=== PATIENT | male | born 1960 | race Caucasian/White ===

== ENCOUNTER 2021-04-28 09:07 | Emergency (ER) | payer MEDICARE, SELFPAY ==
--- NOTE | ~2021-04-28 | CT_ITS ---
EXAMINATION: CT abdomen pelvis w con EXAM DATE: 04/28/2021 11:48 INDICATION: Right flank pain. TECHNIQUE: Spiral CT of the abdomen and pelvis was performed following intravenous injection of 100 m L Omnipaque 350. Axial, coronal and sagittal images of the abdomen and pelvis were reviewed. The do se-length product (DLP) for this examination was 1369.50 mGy-cm. The exposure was tailored according to patient size (auto mA exposure control), and iterative reconstruction (ASIR) was used as addition al dose reduction technique. There is no prior study for comparison. FINDINGS: Nodular liver contour consistent with cirrhosis. No focal liver lesions. The spleen, adrena l glands and pancreas are unremarkable. The gallbladder is contracted but otherwise unremarkable. P ortal and splenic veins are patent. Kidneys enhance symmetrically. There is no hydronephrosis. Th e prostate is unremarkable. The bladder is unremarkable. Several borderline sized lower retroperito luis alberto, right pelvic lymph nodes which are also hyperdense, consistent with prior granulomatous process . Treated lymphoma would be another consideration if there is such history. The appendix is normal. The stomach and small bowel are unremarkable. There is expected amount of c olonic stool. No free intraperitoneal gas. The heart is normal in size. There are no pericardial or pleural effusions. The lung bases are unremarkable. There are no osteoblastic or osteolytic les ions identified. IMPRESSION: 1. Several borderline enlarged, hyperdense lower retroperitoneal lymph nodes could be prior granulom atous process or treated lymphoma if there is such history. 2. Cirrhosis. Reviewed, dictated and finalized at location A. IMPRESSION: 1. Several borderline enlarged, hyperdense lower retroperitoneal lymph nodes c ould be prior granulomatous process or treated lymphoma if there is such histor y. 2. Cirrhosis.
[2021-04-28 09:21] VITALS: BP 133/62; PULSE 93; RESP 20; TEMP 36.8; O2SAT 90
[2021-04-28 09:35] LABS: Basophils Percent Auto 0.6 % (0.2-1.2); Eosinophils Absolute Auto 0.1 K/mm3 (0-0.3); Hematocrit 55.6 % (42.0-52.0); Hemoglobin 18.3 g/dL (14.0-18.0); Immature Granulocyte Absolute 0.02 K/mm3 (0.00-0.031); Immature Granulocyte Percent A 0.3 % (0-0.5); Lymphocytes Absolute Auto 1.06 K/mm3 (0.9-3.2); Mean Corpuscular HGB Conc 32.9 g/dl (32-36); Mean Corpuscular Volume 100.4 fl (80-100); Mean Platelet Volume 10.1 fl (7.4-10.4); Monocytes Absolute Auto 0.7 K/mm3 (0.1-0.6); Monocytes Percent Auto 9.5 % (2.6-8.5); Neutrophils Absolute Auto 5.1 K/mm3 (1.3-6.7); Neutrophils Percent Auto 72.6 % (45.5-73.1); Platelet Count Result 141 k/mm3 (150-375); Red Blood Count 5.54 M/mm3 (4.6-6.20); Red Cell Distribution Width 13.6 % (11.5-14.5); White Blood Count 7.1 K/mm3 (4.5-10.0)
[2021-04-28 09:48] LABS: Anion Gap 9 mmol/L (8-16); Blood Urea Nitrogen 16 mg/dL (9-20); Calcium 9.2 mg/dL (8.4-10.2); Carbon Dioxide 30 mmol/L (22-30); Chloride 102 mmol/L (98-107); Estimated CRCL calculation 179 ml/min; Estimated Glomerular Filt Rate > 60; Glucose 199 mg/dL (65-110); Potassium 4.1 mmol/L (3.4-5.0); Sodium 141 mmol/L (137-145)
[2021-04-28 10:45] VITALS: O2SAT 97
--- NOTE | 2021-04-28 11:13 | ED.ABDPAIN ---
HPI - Abdominal Pain General Chief Complaint: Abdominal Pain Stated Complaint: flank pain Time Seen by Provider: 04/28/21 11:12 Source: patient Mode of arrival: ambulatory Limitations: no limitations and clinical condition History of Present Illness HPI narrative: Patient 61 years old white male, morbidly obese presents with intermittent left flank pain started 5 days ago, got better 2 days ago, this morning woke up with severe pain at the left flank area, dull aching, worse with certain position and movement, better as long as sitting still. Patient denies any nausea, vomiting, diarrhea, constipation, urinary symptoms. Also denies any fever or chills or trauma or new physical activities. History of COPD, on nasal cannula, diabetes, with chronic stasis dermatitis. Patient sit and lay down and sleep on a recliner 10/03. Patient does not work,. Related Data Home Medications Medication Instructions Recorded Confirmed albuterol sulfate INHALATION 04/28/21 dapagliflozin [Farxiga] 10 mg 04/28/21 fluticasone propion-salmeterol INHALATION 04/28/21 glimepiride 4 mg 04/28/21 metformin 1,000 mg 04/28/21 Allergies Allergy/AdvReac Type Severity Reaction Status Date / Time No Known Allergies Allergy Mild Verified 11/30/09 15:56 Yellow Hornet Allergy Mild Hives Uncoded 04/28/21 10:34 Review of Systems Review of Systems: CONSTITUTIONAL: Denies fever, chills, or sweats. EYES: Denies visual changes, redness, or discharge. ENT: Denies rhinorrhea, congestion, sore throat, or otalgia. CARDIOVASCULAR: Denies chest pain, palpitations, or edema. RESPIRATORY: Denies cough or dyspnea. GASTROINTESTINAL: Denies abdominal pain, nausea, vomiting, or diarrhea. GENITOURINARY: Denies dysuria or hematuria. SKIN: Denies rash or itching. MUSCULOSKELETAL: Denies back pain, joint pain, or myalgia. NEUROLOGIC: Denies headache, numbness, or weakness. PSYCHIATRIC: Denies anxiety or depression. Exam Narrative: General appearance: Well-developed, well-nourished Skin: Normal color Head: Normocephalic, nontraumatic Eyes: Clear conjunctiva ENT: Oropharynx normal, ears normal, nose normal Neck: Supple, nontender Chest and respiratory: Airway patent, no respiratory distress, no accessory muscle use Heart: Regular rate/rhythm Abdomen: Soft, nontender, no organomegaly, quiet bowel sounds Vascular: Normal peripheral pulses, normal capillary refill. Musculoskeletal: Slight tenderness at the left lower back, no bruises, no mass, no rash, pain get worse if the patient try to tilt his trunk from side to side. 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 Chapman Consultations Consultation #1: Dr. Chapman. Patient need to follow-up as outpatient Date: 04/28/21 Time: 13:34 Vital Signs Vital signs: Vital Signs Temperature 36.8 C 04/28/21 09:21 Pulse Rate 93 04/28/21 09:21 Respiratory Rate 20 04/28/21 09:21 Blood Pressure 133/62 04/28/21 09:21 Pulse Oximetry 90 04/28/21 09:21 Temperature 36.8 C 04/28/21 09:21 Pulse Rate 93 04/28/21 09:21 Respiratory Rate 20 04/28/21 09:21 Blood Pressure 133/62 04/28/21 09:21 Pulse Oximetry 97 04/28/21 10:45 MDM - Abdominal Pain Lab Data Result diagrams: 04/28/21 09:27 04/28/21 09:27 Labs: Lab Results 04/28/21 04/28/21 04/28/21 Range/Units 09:27 09:27 09:27 WBC 7.1 (4.5-10.0) K/mm3 RBC 5.54 (4.6-6.20) M/mm3 Hgb 18.3 H (14.0-18.0) g/dL Hct 55.6 H (42.0-52.0) % MCV 100.4 H (80-100) fl MCH 33.0 (26-34) pg MCHC 32.9 (32-36) g/dl R
--- NOTE | 2021-04-28 11:26 | PC.NURSE ---
Called lab talked to Destiny at [phone] and added on a Lip, Hepatic
[2021-04-28 11:35] LABS: Alanine Aminotransferase 57 U/L (4-50); Alkaline Phosphatase 77 U/L (38-126); Aspartate Amino Transferase 42 U/L (17-59); Bilirubin,Total 0.8 mg/dL (0.2-1.3); Lipase 563 U/L (23-300)
[2021-04-28 11:49] LABS: Add Urine Microscopic? YES; Appearance Urine Clear (Clear); Bilirubin Urine Negative (Negative); Blood Urine Negative (Negative); Color Urine Yellow (Yellow); Glucose Urine UA 3+ mg/dL (Negative); Ketones Urine Negative (Negative); Leukocyte Esterase Ur Negative LEU/UL (Negative); Mucus Urine Rare /lpf; Nitrate Urine Negative (Negative); Protein Urine Negative (Negative); RBC Urine 0-2 /hpf (0-2); Urobilinogen Urine Negative mg/dL (<2.0); WBC Urine 0-3 /hpf
[2021-04-28 11:54] LABS: Specific Grav Ur 1.032 (1.001-1.035)
[2021-04-28 13:37] VITALS: BP 132/88; PULSE 88; RESP 20; O2SAT 95
== END 2021-04-28 13:39 | disposition home or self-care (01) ==
PROVIDERS: Emergency Provider Emergency Medicine; PCP Internal Medicine
DX: R10.9 Unspecified abdominal pain (principal); M54.9 Dorsalgia, unspecified; D75.1 Secondary polycythemia; R59.1 Generalized enlarged lymph nodes; J44.9 Chronic obstructive pulmonary disease, unspecified; Z99.81 Dependence on supplemental oxygen; E11.9 Type 2 diabetes mellitus without complications; E66.01 Morbid (severe) obesity due to excess calories; Z68.41 Body mass index [BMI] 40.0-44.9, adult; K74.60 Unspecified cirrhosis of liver; Z79.84 Long term (current) use of oral hypoglycemic drugs
CPT/HCPCS: 36415; 74177; 80048; 80076; 81001; 83690; 85025; 99284; Q9967

== ENCOUNTER 2021-10-09 11:56 | Outpatient (CLI) | payer MEDICARE, SELFPAY ==
--- NOTE | ~2021-10-09 | PE_ITS ---
EXAMINATION: PET skull to mid thigh DATE: 10/09/2021 14:21 INDICATION: Retroperitoneal lymphadenopathy TECHNIQUE: Blood glucose level was 112 mg/dL. 11.378 mCi of 18-fluorodeoxyglucose (18-FDG) was admini stered i.v. Low dose computed tomography (CT) images were acquired from the base of the brain to the proximal thighs for attenuation correction and anatomic localization. Positron emission tomography (P ET) images were acquired in the same distribution beginning 58 minutes after injection. The dose-rody th product (DLP) was 1321.82 mGy-cm. COMPARISON: CT, 04/28/2021 FINDINGS: Head/neck: No abnormal FDG uptake is identified. Areas of FDG uptake in the oral cavity and vocal cor ds are likely physiologic. There is minimal opacification of the right maxillary sinus. There is near complete opacification of the right frontal sinus. There is partial opacification of the ethmoidal a ir cells. Chest: No abnormal FDG uptake is identified. There is moderate to severe emphysema. There is atelecta sis in the lower lobes. No pleural effusion or pneumothorax is identified. No pathologically enlarged thoracic lymph nodes are identified. The heart size is normal. Calcified right hilar lymph nodes are consistent with old granulomatous disease. There is calcified coronary artery atherosclerosis. Abdomen/pelvis/proximal thighs: There are enlarged right retroperitoneal lymph nodes which measure up to 1.7 cm which are stable and do not demonstrate abnormal FDG uptake. There is questionable eccentr ic wall thickening of the rectum. Apparent associated FDG uptake could be due to bowel contents. Phys iologic FDG activity is present in the bowel and urinary tract. The liver, spleen, pancreas, gallblad netta, adrenal glands, and kidneys are unremarkable. There is no free intraperitoneal gas or evidence o f bowel obstruction. There is calcified atherosclerosis of the aorta and many of the other arteries. Musculoskeletal: No abnormal FDG uptake is identified. There is mild cervical and thoracic spondylosi s. There is moderate lumbar spondylosis at L5-S1. IMPRESSION: 1. Right pelvic lymphadenopathy without abnormal FDG uptake, likely reactive. 2. Possible eccentric wall thickening of the rectum. Recommend correlation with colonoscopy history. Reviewed, dictated and finalized at location A. NQUENCY PREVENTION SOCIAL WORKER
[2021-10-09 12:35] LABS: Glucose Point of Care 112 mg/dl (65-105)
== END 2021-10-09 11:57 | disposition home or self-care (01) ==
LOC: ANHIMG 11:57
PROVIDERS: PCP Internal Medicine; Visit Provider Internal Medicine
DX: Z03.89 Encounter for observation for other suspected diseases and conditions ruled out (principal); R59.0 Localized enlarged lymph nodes
CPT/HCPCS: 78815; A9552